=== PATIENT | male | born 1980 | race African-American/Black ===

== ENCOUNTER 2019-03-28 20:11 | Emergency (ER) | payer MEDICAID ==
[~2019-03-28] VITALS: Ht 177.8 cm; Wt 131.9 kg
[2019-03-28 20:15] VITALS: BP 137/101
--- NOTE | 2019-03-28 22:05 | NUR ---
headache for 5-6 days; despite inflammatories, right side of neck down to back. heavy lifting at work, no loss of sensation distally per triage note
--- NOTE | 2019-03-28 22:39 | NUR ---
hyun lieberman at bedside pt will be dc'd with prescription
--- NOTE | 2019-03-28 23:00 | NUR ---
TASK RN: PT DC'D BY PROVIDER. PT AMBULATED STEADILY TO DC WITH PROVIDER.
== END 2019-03-28 23:59 | disposition home or self-care (01) ==
LOC: ED 22:45
DX: G44.219 Episodic tension-type headache, not intractable (principal)
CPT/HCPCS: 99283